=== PATIENT | female | born 1950 | race Caucasian/White ===

== ENCOUNTER → 2017-12-31 09:56 | Outpatient (CLI) | payer MEDICARE, OTHER, SELFPAY ==
[2017-12-31 10:49] LABS: Add Manual Diff / Slide Review NO; Basophils Percent Auto 0.7 % (0-2); Eosinophils Percent Auto 3.8 % (2-4); Hematocrit 39.7 % (36-46); Hemoglobin 13.8 g/dL (12.0-16.0); Lymphocytes Percent Auto 28.3 % (25-40); Mean Corpuscular HGB Conc 34.8 % (30-36); Mean Corpuscular Hemoglobin 29.4 PG (26-34); Mean Corpuscular Volume 84.4 fL (80-100); Monocytes Percent Auto 7.4 % (3-14); Neutrophils Absolute Auto 3000 /uL (3000-5900); Neutrophils Percent Auto 59.8 % (50-75); Platelet Count 188 X10^3/uL (150-400); Red Blood Cell Count 4.71 X10^6/uL (4.0-5.2); Red Cell Distribution Width 12.8 % (11.6-14.8)
[2017-12-31 11:01] LABS: Alanine Aminotransferase 31 IU/L (9-52); Albumin 4.5 g/dL (3.5-5.0); Albumin Globulin Ratio 1.5 (1.0-2.8); Alkaline Phosphatase 58 U/L (38-126); Aspartate Aminotransferase 19 IU/L (14-36); BUN Creatinine Ratio 22.5 (6-22); Bilirubin Total 0.7 mg/dL (0.2-1.3); Blood Urea Nitrogen 18 mg/dL (7-17); Calcium 9.5 mg/dL (8.4-10.2); Carbon Dioxide 29 mmol/L (22-32); Chloride 102 mmol/L (98-107); Cholesterol 214 mg/dL (140-199); Estimated Glomerular Filt Rate > 60.0 mL/min (>60); Glucose 166 mg/dL (80-110); HDL Cholesterol 58 mg/dL (40-60); HEMOLYSIS < 15 (0-50); Hemoglobin A1C% w Est Avg Glu 6.5 % (4.0-6.0); LDL Cholesterol Calculated 132 mg/dL (<100); Potassium 4.4 mmol/L (3.4-5.1); Sodium 143 mmol/L (137-145); Total Protein 7.5 g/dL (6.3-8.2); Triglycerides 120 mg/dL (35-150)
[2017-12-31 12:04] LABS: Thyroid Stimulating Hormone 2.18 uIU/mL (0.47-4.68)
== END ==
PROVIDERS: PCP Internal Medicine; Visit Provider Internal Medicine
DX: E11.9 Type 2 diabetes mellitus without complications (principal); E78.5 Hyperlipidemia, unspecified; I10 Essential (primary) hypertension
CPT/HCPCS: 36415; 80053; 80061; 83036; 84443; 85025

== ENCOUNTER 2021-03-23 02:23 | Emergency (ER) | payer MEDICARE, OTHER, SELFPAY ==
[2021-03-23] VITALS (12 sets, daily range): BP systolic 129–172; BP diastolic 71–85; PULSE 90–119; RESP 18–35; TEMP 36.4; O2SAT 83–99; BMI 28.0
--- NOTE | 2021-03-23 02:33 | DI.RAD.S_ITS ---
PROCEDURE: XR CHEST 1V INDICATIONS: cough TECHNIQUE: One view of the chest was acquired. COMPARISON: None. FINDINGS: Surgical changes and devices: None. Lungs and pleura: Lungs are clear. No pleural effusions or pneumothorax. Mediastinum: Mediastinal contours appear normal. Heart size is normal. Bones and chest wall: No suspicious bony lesions. Overlying soft tissues appear unremarkable. IMPRESSION: No acute cardiopulmonary abnormalities or focal airspace disease. No significant discrepancy with the emergency department director radiology preliminary report. Dictated by: Devyn Bagley M.D. on 03/23/2021 at 7:08 Approved by: Devyn Bagley M.D. on 03/23/2021 at 7:08
--- NOTE | 2021-03-23 02:42 | ED_ITS ---
HPI - General Adult General Chief complaint: Dizziness Stated complaint: dizzy Time Seen by Provider: 03/23/21 02:23 Source: patient Mode of arrival: EMS History of Present Illness HPI narrative: 70-year-old female. Has a history of high blood pressure. High cholesterol. Is a pal-rdikzon-fndhuenik diabetic. Is brought in by EMS for evaluation of an episode that occurred earlier this evening. She stated that she was sitting on her couch when she had a sudden episode of dizziness and vomiting. She is also having a cough and shortness of breath. She recently returned from a trip from [place]. Symptoms have improved somewhat since the onset she states she has not back to normal. She has had a history of high blood pressure. States this has happened her the past when her blood pressures been elevated. She has taking her medications. Related Data Previous Rx's Medication Instructions Recorded Glucose: Home Monitoring Kit kit NA Q DAY #1 03/22/17 metformin 500 mg tablet 250 mg PO BIDCC #90 tab 01/01/18 (Glucophage) metoprolol tartrate 25 mg tablet 25 mg PO BID #180 tab 01/01/18 triamcinolone acetonide 0.1 % 1 applictn TOP DAILY #15 gram 01/01/18 topical ointment blood sugar diagnostic (Accu-Chek #100 each 01/14/18 SmartView Test Strip) losartan 50 mg tablet 50 mg PO DAILY #90 tab 01/15/18 Allergies Allergy/AdvReac Type Severity Reaction Status Date / Time ampicillin [AMPICILLIN] Allergy Severe THROAT Unverified 01/01/18 10:59 CLOSING/HIVES adhesive [ADHESIVE] Allergy Mild Unverified 01/01/18 10:59 latex [LATEX] Allergy Mild Unverified 01/01/18 10:59 Review of Systems Constitutional Constitutional: Denies fever(s) and Denies headache(s) Eyes Eyes: Reports system reviewed and no additional complaints, except as documented ENT Ears, Nose, Mouth, and Throat: Denies headache(s), Reports sinus pressure and Denies sore throat Comments: Sinus congestion Cardiovascular Cardiovascular: Denies chest pain, Denies syncope, Denies rapid heart rate and Reports dyspnea Respiratory Respiratory: Reports chest congestion, Reports cough and Reports dyspnea Gastrointestinal Gastrointestinal: Denies change in bowel habits, Reports nausea and Reports vomiting Genitourinary Genitourinary: Reports system reviewed and no additional complaints, except as documented Musculoskeletal Musculoskeletal: Reports system reviewed and no additional complaints, except as documented Integumentary/Breasts Skin/Breast: Reports system reviewed and no additional complaints, except as documented Neurologic Neurologic: Reports system reviewed and no additional complaints, except as documented, Denies syncope and Denies headache(s) Psychiatric Psychiatric: Reports system reviewed and no additional complaints, except as documented Endocrine Endocrine: Reports system reviewed and no additional complaints, except as documented Hematologic/Lymphatic On Anticoagulants: No Allergic/Immunologic Allergic/Immunologic: Reports system reviewed and no additional complaints, except as documented Patient History Medical History Carpal tunnel syndrome (~1989) Chicken pox Gout History of urinary incontinence Hypertension (~1999) Irregular menstrual cycle Measles Menopause Neck and shoulder pain Rubella Seasonal allergies TIA (transient ischemic attack) (~2014) Surgical History (Updated 12/31/17 @ 22:09 by Cecy Reyes) Anesthesia History of laparoscopy (~1976) Status post delivery (~1980) Status post delivery (~1984) Status post dilation and curettage (~1978) Status post laparotomy Family History (Updated 07/19/14 @ 00:00 by Conversion Provider) Brother Age: 75 Hypertension Brother Age: 67 Epilepsy Child Age: 36 Rheumatic fever Father ETOHism Diabetes mellitus Smoker Grandfather Rheumatic fever Mother Aortic stenosis Stroke Hypertension Sister Age: 69 Breast cancer Endometrial cancer Sister Age: 58 Breast cancer Grandmother No problems noted. Grandfather No problems noted. Grandmother No problems noted. Social History Smoking Status: Never smoker Smoking Status: Never smoker Substance Use Type: does not use Exam Initial Vital Signs Initial Vital Signs: Vital Signs Pulse Rate 104 H 03/23/21 02:21 Respiratory Rate 29 H 03/23/21 02:21 Pulse Oximetry 99 03/23/21 02:21 Const General: cooperative, healthy appearing, comfortable and well developed Limitations: mental status not altered HENMT Head: normal to inspection and normocephalic Neck Neck: normal visual inspection Chest Chest: normal inspection of the chest Resp Effort & Inspection: normal respiratory effort, not labored and not tachypneic Auscultation: clear to auscultation bilaterally Cardio Rate: tachycardic Rhythm: regular rhythm GI Inspection: normal to inspection Skin General: no rashes or lesions noted Neuro General: patient alert, patient awake, patient oriented x3 and moves all extremities Extrem General: normal to inspection, capillary refill normal and No edema Psych Appearance: grossly normal and well kempt Course Orders Ordered: ED Orders 03/23/21 21:15 PTT [Partial Thromboplastin Time] Q6H Discontinued Medications Aspirin (Aspirin 81 Mg Chew Tab) 324 mg PO NOW ONE Stop: 03/23/21 03:05 Last Admin: 03/23/21 03:12 Dose: 324 mg Documented by: MAKENZIE Furosemide (Furosemide 40 Mg/4 Ml Vial) 40 mg IV NOW ONE Stop: 03/23/21 03:44 Last Admin: 03/23/21 03:47 Dose: 40 mg Documented by: MAKENZIE Heparin Sodium (Porcine) (Heparin 5,000 Unit/Ml Vial) 4,000 unit IV NOW ONE Stop: 03/23/21 03:13 Last Admin: 03/23/21 03:33 Dose: 4,000 unit Documented by: MAKENZIE Heparin Sodium/Dextrose (Heparin Drip) 25,000 unit in 500 mls @ 18.942 mls/hr IV CONT GUSTABO; Protocol Last Admin: 03/23/21 03:34 Dose: 12 units/kg/hr, 18.942 mls/hr Documented by: MAKENZIE Nitroglycerin (Nitroglycerin Oint 1 Inch/Gm Oint...G.) 0.5 inch TOP NOW ONE Stop: 03/23/21 03:44 Last Admin: 03/23/21 03:47 Dose: 0.5 inch Documented by: MAKENZIE Ondansetron HCl (Ondansetron 4 Mg/2 Ml Inj) 4 mg IV NOW ONE Stop: 03/23/21 03:36 Last Admin: 03/23/21 03:45 Dose: 4 mg Documented by: MAKENZIE Vital Signs Vital signs: Vital Signs - 8 hr 03/23/21 02:21 03/23/21 02:23 03/23/21 02:30 Temperature 97.6 F Pulse Rate 104 H 104 H 90 Respiratory Rate 29 H 20 20 Blood Pressure 172/81 H 170/83 H Pulse Oximetry 99 98 98 03/23/21 03:00 03/23/21 03:34 03/23/21 03:36 Temperature Pulse Rate 91 H 108 H 104 H Respiratory Rate 20 32 H 28 H Blood Pressure 171/79 H 152/81 H Pulse Oximetry 97 83 L 83 L 03/23/21 04:00 03/23/21 04:30 03/23/21 05:00 Temperature Pulse Rate 113 H 107 H 119 H Respiratory Rate 35 H 25 H 28 H Blood Pressure 160/84 H 129/76 140/72 Pulse Oximetry 95 96 92 03/23/21 05:30 03/23/21 06:00 Temperature Pulse Rate 114 H 109 H Respiratory Rate 23 22 Blood Pressure 150/85 H 132/78 Pulse Oximetry 95 95 Medical Decision Making Lab Data Lab results reviewed: Yes I reviewed the patient's lab results. Result diagrams: 03/23/21 02:15 03/23/21 02:15 Labs: Lab Results 03/23/21 03/23/21 03/23/21 Range/Units 02:15 02:15 02:15 WBC 7.7 (4.5-11.0) X10^3/uL RBC 4.33 (4.0-5.2) X10^6/uL Hgb 12.6 (12.0-16.0) g/dL Hct 37.2 (36-46) % MCV 86.0 (80-100) fL MCH 29.0 (26-34) PG MCHC 33.8 (30-36) % RDW 13.3 (11.6-14.8) % Plt Count 199 (150-400) X10^3/uL Neut % (Auto) 69.5 (50-75) % Lymph % (Auto) 18.7 L (25-40) % Spink % (Auto) 6.5 (3-14) % Eos % (Auto) 4.7 H (2-4) % Baso % (Auto) 0.6 (0-2) % Neut # (Auto) 5300 (7530-7177) /uL Lymph # (Auto) 1400 (5640-7750) /uL Spink # (Auto) 500 (0-900) /uL Eos # (Auto) 400 (0-450) /uL Baso # (Auto) 0 (0-100) /uL PT (10.1-12.7) SECONDS INR (0.9-1.3) APTT (26.4-36.2) SECONDS Sodium 137 (137-145) mmol/L Potassium 4.0 (3.4-5.1) mmol/L Chloride 102 (98-107) mmol/L Carbon Dioxide 28 (22-32) mmol/L BUN 14 (7-17) mg/dL Creatinine 0.71 (0.52-1.04) mg/dL Estimated GFR > 60.0 (>60) mL/min BUN/Creatinine Ratio 19.7 (6-22) Glucose 233 H (80-110) mg/dL Calcium 9.4 (8.4-10.2) mg/dL Total Bilirubin 0.5 (0.2-1.3) mg/dL AST 20 (14-36) IU/L ALT 15 (<35) IU/L Alkaline Phosphatase 70 (38-126) U/L Total Creatine Kinase 115 (30-135) U/L CK-MB (CK-2) 0.98 (<2.37) ng/mL CK-MB (CK-2) Rel Index 0.9 L (1.5-5.0) % Troponin I 0.132 H* (0.01-0.034) ng/mL NT-Pro-B Natriuret Pep (<125) pg/mL Total Protein 7.3 (6.3-8.2) g/dL Albumin 4.1 (3.5-5.0) g/dL Globulin 3.2 (1.7-4.1) g/dL Albumin/Globulin Ratio 1.3 (1.0-2.8) Ethyl Alcohol < 10 ( - 10) mg/dL SARS-CoV-2 (PCR) (Negative) 03/23/21 03/23/21 03/23/21 Range/Units 02:15 02:15 02:15 WBC (4.5-11.0) X10^3/uL RBC (4.0-5.2) X10^6/uL Hgb (12.0-16.0) g/dL Hct (36-46) % MCV (80-100) fL MCH (26-34) PG MCHC (30-36) % RDW (11.6-14.8) % Plt Count (150-400) X10^3/uL Neut % (Auto) (50-75) % Lymph % (Auto) (25-40) % Spink % (Auto) (3-14) % Eos % (Auto) (2-4) % Baso % (Auto) (0-2) % Neut # (Auto) (1401-6084) /uL Lymph # (Auto) (5313-3076) /uL Spink # (Auto) (0-900) /uL Eos # (Auto) (0-450) /uL Baso # (Auto) (0-100) /uL PT 11.4 (10.1-12.7) SECONDS INR 1.0 (0.9-1.3) APTT 33 (26.4-36.2) SECONDS Sodium (137-145) mmol/L Potassium (3.4-5.1) mmol/L Chloride (98-107) mmol/L Carbon Dioxide (22-32) mmol/L BUN (7-17) mg/dL Creatinine (0.52-1.04) mg/dL Estimated GFR (>60) mL/min BUN/Creatinine Ratio (6-22) Glucose (80-110) mg/dL Calcium (8.4-10.2) mg/dL Total Bilirubin (0.2-1.3) mg/dL AST (14-36) IU/L ALT (<35) IU/L Alkaline Phosphatase (38-126) U/L Total Creatine Kinase (30-135) U/L CK-MB (CK-2) (<2.37) ng/mL CK-MB (CK-2) Rel Index (1.5-5.0) % Troponin I (0.01-0.034) ng/mL NT-Pro-B Natriuret Pep 3190 H (<125) pg/mL Total Protein (6.3-8.2) g/dL Albumin (3.5-5.0) g/dL Globulin (1.7-4.1) g/dL Albumin/Globulin Ratio (1.0-2.8) Ethyl Alcohol ( - 10) mg/dL SARS-CoV-2 (PCR) Negative (Negative) 03/23/21 Range/Units 05:11 WBC (4.5-11.0) X10^3/uL RBC (4.0-5.2) X10^6/uL Hgb (12.0-16.0) g/dL Hct (36-46) % MCV (80-100) fL MCH (26-34) PG MCHC (30-36) % RDW (11.6-14.8) % Plt Count (150-400) X10^3/uL Neut % (Auto) (50-75) % Lymph % (Auto) (25-40) % Spink % (Auto) (3-14) % Eos % (Auto) (2-4) % Baso % (Auto) (0-2) % Neut # (Auto) (9893-3807) /uL Lymph # (Auto) (8698-5723) /uL Spink # (Auto) (0-900) /uL Eos # (Auto) (0-450) /uL Baso # (Auto) (0-100) /uL PT (10.1-12.7) SECONDS INR (0.9-1.3) APTT (26.4-36.2) SECONDS Sodium (137-145) mmol/L Potassium (3.4-5.1) mmol/L Chloride (98-107) mmol/L Carbon Dioxide (22-32) mmol/L BUN (7-17) mg/dL Creatinine (0.52-1.04) mg/dL Estimated GFR (>60) mL/min BUN/Creatinine Ratio (6-22) Glucose (80-110) mg/dL Calcium (8.4-10.2) mg/dL Total Bilirubin (0.2-1.3) mg/dL AST (14-36) IU/L ALT (<35) IU/L Alkaline Phosphatase (38-126) U/L Total Creatine Kinase (30-135) U/L CK-MB (CK-2) (<2.37) ng/mL CK-MB (CK-2) Rel Index (1.5-5.0) % Troponin I 0.155 H* (0.01-0.034) ng/mL NT-Pro-B Natriuret Pep (<125) pg/mL Total Protein (6.3-8.2) g/dL Albumin (3.5-5.0) g/dL Globulin (1.7-4.1) g/dL Albumin/Globulin Ratio (1.0-2.8) Ethyl Alcohol ( - 10) mg/dL SARS-CoV-2 (PCR) (Negative) Urine Dip Bedside Urine Glucose Negative Bedside Urine Bilirubin - Negative Bedside Urine Ketone - Negative Urine Specific Preston 1.015 Bedside Urine Occult Blood - Negative Bedside Urine pH 6.0 Bedside Urine Protein - Negative Bedside Urine Urobilinogen - Negative Bedside Urine Nitrite - Negative Bedside Urine Leukocytes - Negative Esterase Point of care testing: Urine Dip Bedside Urine Glucose Negative Bedside Urine Bilirubin - Negative Bedside Urine Ketone - Negative Urine Specific Preston 1.015 Bedside Urine Occult Blood - Negative Bedside Urine pH 6.0 Bedside Urine Protein - Negative Bedside Urine Urobilinogen - Negative Bedside Urine Nitrite - Negative Bedside Urine Leukocytes - Negative Esterase Imaging Data Chest x-ray: Attestation: I personally reviewed and interpreted this imaging study as follows: My Impression: No acute findings Radiologist's Impression: No acute findings CT scan - chest: Radiologist's Impression: No pulmonary emboli Smooth interstitial thickening with a few hazy densities in the lung parenchyma bilaterally. Findings could indicate mild edema or atypical infiltrate ECG Data Attestation: I personally reviewed and interpreted this ECG as follows: Prior ECG tracings: available for review Interpretation: EKG transmitted from EMS Sinus rhythm Heart rate of 81 Normal axis Normal QRS ST depressions V2 V3 and V4 EKG in emergency department Sinus rhythm Ventricular rate 91 Normal axis First-degree AV block pain or interval [address] depressions V2 V3 V4 Repeat EKG Sinus rhythm with noted artifact Ventricular rate [address] depressions V2 V3 V4 MDM Narrative Medical decision making narrative: Patient tachycardic upon arrival also hypertensive. She denies chest pain. Has had a cough. Chest x-ray is unremarkable. COVID is negative. Afebrile. No leukocytosis. Low suspicion for pneumonia. Patient's troponin came back positive. She does have ST depressions laterally on her EKG. CT scan was ordered for evaluation of a pulmonary embolism because she also had an elevated BNP. No priors to compare this to. She did not have a pulmonary embolism but does show signs of edema in her lungs. No lower extremity swelling. She did have he issues with lying flat in the CT scanner. When she returned to the room the patient was hypoxic to the upper 70s low 80s. She did need to be put on a non-rebreather for short period of time but then was able to be weaned off to minimal oxygen support by nasal cannula. She was given Lasix and did diurese. Was given aspirin. Was started on a heparin drip when her initial troponin was positive. Was also started on nitro paste. This did improve her blood pressure. Repeat troponin continues to be elevated. Patient does require transfer to a facility that has pulmonology/cardiology. I did discuss the case with Dr. Matute with cardiology at [facility] who asked the patient be admitted to the Medicine Service and [facility] having to consult upon arrival. I did discuss case with Dr. Delgado on-call for Internal Medicine who accepts patient in transfer. I did discuss the need for transfer with the patient. She expressed understanding agreement. I did discuss occasion the patient's daughter who lives in [place]. This was done per the request of the patient. Patient stable for transfer. Critical Care Time Critical Care Time Critical Care Time: Yes Total Critical Care Time: 40 Attestation: The high probability of a clinically significant, sudden or life threatening deterioration of the cardiovascular, respiratory system(s) required my full and direct attention, intervention and personal management. The aggregate critical care time was [40 minutes. This time is in addition to time spent performing reported procedures but includes the following: [X Data Review and interpretation [x] Patient assessment and monitoring of vital signs [x] Documentation [x] Medication orders and management Discharge Plan Departure Patient Disposition: [facility] Clinical Impression: Non-ST elevation OK (NSTEMI), Hypertension, Hypoxia Prescriptions: No Action Glucose: Home Monitoring Kit NA Q DAY Qty: 1 0RF (DME) blood sugar diagnostic [Accu-Chek SmartView Test Strip] strip See Dose Instructions .ROUTE .MEDSUPPLY Qty: 100 5RF Dose Instruction: As directed Rx Instructions: Use to check blood glucose once daily losartan 50 mg tablet 50 mg PO DAILY Qty: 90 0RF metformin [Glucophage] 500 mg tablet 250 mg PO BIDCC Qty: 90 3RF Rx Instructions: TAKE 1/2 TABLET TWICE A DAY WITH MEALS. Please make annual appointment with doctor for more refills metoprolol tartrate 25 mg tablet 25 mg PO BID Qty: 180 3RF triamcinolone acetonide 0.1 % ointment 1 applictn TOP DAILY Qty: 15 0RF Referrals: Arleth Land ARNP [Primary Care Provider] -
[2021-03-23 02:44] LABS: Add Manual Diff / Slide Review NO; Basophils Absolute Auto 0 /uL (0-100); Basophils Percent Auto 0.6 % (0-2); Eosinophils Absolute Auto 400 /uL (0-450); Eosinophils Percent Auto 4.7 % (2-4); Hematocrit 37.2 % (36-46); Hemoglobin 12.6 g/dL (12.0-16.0); Lymphocytes Absolute Auto 1400 /uL (1100-4500); Lymphocytes Percent Auto 18.7 % (25-40); Mean Corpuscular HGB Conc 33.8 % (30-36); Monocytes Absolute Auto 500 /uL (0-900); Monocytes Percent Auto 6.5 % (3-14); Neutrophils Absolute Auto 5300 /uL (1500-7000); Neutrophils Percent Auto 69.5 % (50-75); Platelet Count 199 X10^3/uL (150-400); Red Blood Cell Count 4.33 X10^6/uL (4.0-5.2); Red Cell Distribution Width 13.3 % (11.6-14.8); White Blood Cell Count 7.7 X10^3/uL (4.5-11.0)
[2021-03-23 02:47] LABS: Alanine Aminotransferase 15 IU/L (<35); Albumin 4.1 g/dL (3.5-5.0); Albumin Globulin Ratio 1.3 (1.0-2.8); Alkaline Phosphatase 70 U/L (38-126); Aspartate Aminotransferase 20 IU/L (14-36); BUN Creatinine Ratio 19.7 (6-22); Bilirubin Total 0.5 mg/dL (0.2-1.3); Blood Urea Nitrogen 14 mg/dL (7-17); Calcium 9.4 mg/dL (8.4-10.2); Carbon Dioxide 28 mmol/L (22-32); Chloride 102 mmol/L (98-107); Creatine Kinase 115 U/L (30-135); Estimated Glomerular Filt Rate > 60.0 mL/min (>60); Globulin 3.2 g/dL (1.7-4.1); Glucose 233 mg/dL (80-110); HEMOLYSIS < 15 (0-50); Sodium 137 mmol/L (137-145); Total Protein 7.3 g/dL (6.3-8.2)
[2021-03-23 02:53] LABS: Ethanol (ETOH) < 10 mg/dL
[2021-03-23 02:55] LABS: COVID19 -Nasal RAPID Negative (Negative)
[2021-03-23 03:03] LABS: CKMB % Relative Index 0.9 % (1.5-5.0); Creatine Kinase MB 0.98 ng/mL (<2.37); Troponin I 0.132 ng/mL (0.01-0.034)
--- NOTE | 2021-03-23 03:05 | DI.CT.S_ITS ---
PROCEDURE: CT ANGIO CHEST PE PROTOCOL INDICATIONS: Chest pain, shortness of breath, tachycardia TECHNIQUE: After the administration of intravenous contrast, 2 mm thick sections acquired from the pulmonary apices to the posterior costophrenic angles. 3-dimensional maximum intensity projection (MIP) coronal and sagittal reformats were then acquired through the thorax. For radiation dose reduction, the following was used: automated exposure control, adjustment of mA and/or kV according to patient size. COMPARISON: None. FINDINGS: Image quality: Excellent. Pulmonary arteries: Pulmonary arteries are normal in size, and demonstrate no intraluminal filling defects to suggest central pulmonary embolism. Lungs and pleura: There is smooth septal thickening seen throughout the bilateral hemithoraces. Mild bilateral perihilar airway thickening. Diffuse patchy ground-glass opacities seen predominantly in the right upper , middle, and lower lobes. No focal consolidations. A few nodular opacities noted peripherally in the bilateral hemithoraces. No pleural effusions or pneumothorax. Central and peripheral airways are patent. Mediastinum: Heart size is normal, without pericardial effusion. Moderate atherosclerotic calcifications of the coronary arteries. No mediastinal or hilar adenopathy. Thoracic aorta is normal in caliber and enhancement. Esophagus is normal in caliber, with a small hiatal hernia. Bones and chest wall: No suspicious bony lesions. Ribs and thoracic spine appear intact throughout. Thyroid gland is unremarkable. No axillary or supraclavicular adenopathy. Abdomen: Rim calcified intraluminal filling defect within the gallbladder is partially imaged and likely represents a large gallstone. No evidence to suggest pericholecystic inflammation. Remainder of the visualized upper abdominal solid organs and bowel loops appear unremarkable. IMPRESSION: 1. No acute pulmonary emboli. 2. Smooth septal thickening throughout the bilateral hemithoraces with patchy ground-glass opacities and mild perihilar airway thickening with a few scattered peripheral ill-defined nodular opacities may represent pulmonary edema versus an infectious/inflammatory process. No focal consolidations. 3. Atherosclerotic vascular disease. 4. Cholelithiasis without CT evidence for acute cholecystitis. 5. Small hiatal hernia. No significant discrepancy with the night auditor radiology preliminary report. Dictated by: Devyn Bagley M.D. on 03/23/2021 at 7:08 Approved by: Devyn Bagley M.D. on 03/23/2021 at 7:16
[2021-03-23] MEDS: ASPIRIN 81 MG CHEW TAB 324 MG PO (03:12)
[2021-03-23 03:23] LABS: Prothrombin Time 11.4 SECONDS (10.1-12.7)
[2021-03-23 03:26] LABS: PTT Partial Thromboplastin Tim 33 SECONDS (26.4-36.2)
[2021-03-23 03:30] LABS: NT-proBNP (BNP-Adult 18+) 3190 pg/mL (<125)
[2021-03-23] MEDS: HEPARIN 5,000 UNIT/ML VIAL 4000 UNIT IV (03:33)
[2021-03-23] MEDS: HEPARIN DRIP 25,000 UNIT/500 ML IV.SOLN 18.942 UNIT IV (03:34)
[2021-03-23] MEDS: ONDANSETRON 4 MG/2 ML INJ (03:45)
[2021-03-23] MEDS: ONDANSETRON 4 MG/2 ML INJ IV (03:45)
[2021-03-23] MEDS: NITROGLYCERIN OINT 1 INCH/GM OINT...G. 0.5 INCH TOP (03:47)
[2021-03-23] MEDS: FUROSEMIDE 40 MG/4 ML VIAL IV (03:47)
[2021-03-23 05:42] LABS: Troponin I 0.155 ng/mL (0.01-0.034)
--- NOTE | 2021-03-23 08:56 | PC.NURSE ---
Attempted to call [facility]x to give ETA of pt arrival. Initial call got bounced between tractor operator/ER and warehouse operator. Second call bounced to reinsurance clerk Gwen [phone] who didn't answer the phone and no option to leave a VM. My reinsurance clerk advised.
--- NOTE | 2021-04-21 15:55 | PC.NURSE ---
late entry- per RN Heparin IV drip was continued with transfer to other hospital.
== END 2021-03-23 09:01 | disposition short-term general hospital (02) ==
PROVIDERS: Emergency Provider Emergency Medicine; PCP Internal Medicine
DX: I21.4 Non-ST elevation (NSTEMI) myocardial infarction (principal); I10 Essential (primary) hypertension; R09.02 Hypoxemia; Z20.822 Contact with and (suspected) exposure to COVID-19
CPT/HCPCS: 36415; 71045; 71275; 80053; 80320; 81003; 82550; 82553; 83880; 84484; 85025; 85610; 85730; 87635; 93005; 96365; 96366; 96375; 99284; 99291; C9803; J1644; J1940; J2405; Q9967

== ENCOUNTER 2022-01-18 14:15 | Outpatient (RCR) | payer MEDICARE, OTHER, SELFPAY | END 2022-01-18 16:15 | LOC: CAR 14:15 | PROVIDERS: PCP Internal Medicine; Referring Provider Family Medicine; Visit Provider Family Medicine | DX: I21.3 ST elevation (STEMI) myocardial infarction of unspecified site (principal) | CPT/HCPCS: 93798 ==